=== PATIENT | female | born 1980 | race Caucasian/White ===

== ENCOUNTER → 2016-07-15 | Outpatient (CLI) | payer OTHER ==
[~2016-07-15] MED LIST: PERCOCET1 TA1 PO; ZANTAC 150 MAX150 MG PO
== END ==
LOC: LAB SRH 14:26
DX: Z01.812 Encounter for preprocedural laboratory examination (principal); N92.0 Excessive and frequent menstruation with regular cycle; N93.0 Postcoital and contact bleeding
CPT/HCPCS: 90001; 90004; 90047; 90074; 90155; 90364; 91004; 92863; 95059; 98428

== ENCOUNTER 2016-07-17 08:37 | Day surgery (SDC) | payer OTHER ==
--- NOTE | 2016-07-13 12:52 | HISTORY AND PHYSICAL ---
ADMITTED: 07/17/2016 CHIEF COMPLAINT: 1. Abnormal uterine bleeding. 2. Uterine fibroids. 3. Pelvic pain, female. CHIEF COMPLAINT: The patient has a prolonged history of abnormal uterine bleeding. She has been seen primarily by Dr. Boyer until today. She has an ultrasound showing a 12 weeks' size uterus with a 2.5 cm uterus and heavy bleeding history with multiple treatments in office visits. The patient has multiple options given to her and she has a history of abnormal Pap smears so she elects to have a laparoscopic-assisted vaginal hysterectomy with bilateral salpingectomy removing the tubes and she chooses to have her ovaries remain. This option was given by Dr. Boyer and myself. The patient understands and accepts the risks and benefits. Informed consent was given to her by Dr. Boyer and myself. Informed consent was signed by the patient today with me. MEDICAL/SURGICAL HISTORY: Menstrual history routine. No outstanding. Contraception history not outstanding. OB history: Vaginal deliveries in 2003 and 2006, 8 pounds 8 ounces. No significant stress urinary incontinence without heavy Valsalva. Surgical history: None. Medical: None. MEDICATIONS: 1. None. ALLERGIES: 1. NONE. SOCIAL HISTORY: Tobacco, alcohol and drugs none. FAMILY HISTORY: Mother, father, siblings alive and well. REVIEW OF SYSTEMS: The patient is alert and oriented x3. Genitourinary is per reason for surgery. Cardiovascular: No shortness of breath or chest pain. Gastrointestinal: Normal. PHYSICAL EXAMINATION: VITAL SIGNS: 198 pounds, height 5 feet 4, 64 inches. Blood pressure 128/66, pulse and temperature normal. SKIN/HAIR/INTEGUMENT: Normal. HEENT: Grossly intact. BREASTS: Exam not done. LUNGS: Clear. HEART: Regular rate and rhythm. ABDOMEN: Overweight. EXTREMITIES: Normal. No clubbing, cyanosis, erythema, edema. PELVIC: Exam done by Dr. Boyer with sampling. RECTAL: Exam not done. LAB/IMAGING: Laboratory pending. Pathology from Pap smear and colposcopy recently is negative. IMPRESSION: 1. The patient with abnormal uterine bleeding 2. Pelvic pain 3. Uterine fibroids for surgery. PLAN: Laparoscopically-assisted vaginal hysterectomy, bilateral salpingectomy, no oophorectomy. Risks and benefits were described to the patient. Informed consent given. Risks, benefits, complications, alternatives of blood loss, need for transfusion , infection, damage to pelvic and nonpelvic organs requiring additional surgery, possibility of ICU stay, intubation, coma and as compared to motor vehicle accident. The patient understands and accepts.
[~2016-07-17 08:37] MED LIST changes: -PERCOCET1 TA1 PO
[2016-07-17] MEDS ORDERED: PERCOCET1 TA1 PO ×2 (13:00)
--- NOTE | 2016-07-17 13:02 | Provider's Discharge Care Plan ---
Problem, Goal, Plan Problem List 1. Post-operative pain Goals: Improve disease control Instructions: Follow up as needed
--- NOTE | 2016-07-17 13:02 | Provider's Discharge Care Plan ---
Problem, Goal, Plan Problem List 1. Post-operative pain Goals: Improve disease control Instructions: Follow up as needed
--- NOTE | 2016-07-17 14:08 | OPERATIVE REPORT ---
DATE OF SURGERY: 07/17/2016 SURGEON: Greg Darby MD [employer] DR[employer]: Dr. Boyer PREOPERATIVE DIAGNOSES: 1. Pelvic pain 2. Cervical intraepithelial neoplasia 3. Cervical cyst POSTOPERATIVE DIAGNOSES: 1. Pelvic pain 2. Cervical intraepithelial neoplasia 3. Cervical cyst PROCEDURE PERFORMED: 1. Laparoscopic-assisted vaginal hysterectomy, three 5's, one 11. ANESTHESIA: General endotracheal. Ruy Ham MD. 25 mL subcutaneous for 4 puncture sites. COMPLICATIONS: None. CONDITION: Good. ESTIMATED BLOOD LOSS: Minimal. Less than 50 mL. FLUIDS: 800. No blood. DRAINS: 1100. IMPLANTS/GRAFTS: No grafts, no implants. PATHOLOGY SPECIMEN: Total vaginal hysterectomy with bilateral salpingectomy; no ovaries taken. SURGICAL FINDINGS: Eight pictures taken. Findings: See pictures. Otherwise normal anatomy. SURGICAL TECHNIQUE: The patient was prepped and draped in the usual fashion and time-out was taken. The patient had 2 grams of Ancef. Four puncture sites were placed, after the Veress needle was inserted, without difficulty. An 11 in subumbilical and three 5s were placed in the normal areas without difficulty. The uterus was removed in the usual fashion. The broad ligament and salpinx were lifted, and the Thunderbeat was used to separate the ovaries from the salpinx, down in the uterine, through transverse cervical ligaments, and then dissected into the vagina on Dr. Boyer's side. Then, the gas was allowed to escape. The attention was turned to the vagina. The CO2 initiated and a double-tooth tenaculum was used to pull down on the cervix. Bovie was used to incise some of the cervical reflection, since the vagina had been entered. The PK was used to dissect the rest of uterus without difficulty, and deliver it out of the uterus with the tubes intact. At this point, the Presho was used, along with an 0 poly to run from angle to angle and reapproximate the uterosacral ligaments in the midline, with good hemostasis. The gas was then placed back in the abdomen. Inspection was performed. Irrigation was performed. Hemostasis was meticulous. Instruments from the 3 ports were removed, and then the 11 mm was removed. The [id number] was placed in the subumbilical. Tape was placed on all 4 puncture sites at that point, no other sutures were used. Sponge, needle, tape and instrument count was correct x2. The patient tolerated the procedure well and went to the recovery room.
[2016-07-17 14:35] VITALS: BP 105/61
[2016-07-17 14:50] VITALS: BP 109/51
[2016-07-17 15:06] VITALS: BP 109/51
== END 2016-07-17 16:30 | disposition home or self-care (01) ==
LOC: OR SRH 08:37 → SCU SRH 08:38 → OR SRH 10:00 → ACUTE2 SRH 14:35 → OR SRH 16:30
PROVIDERS: Obstetrics & Gynecology
PROC: 0UT7FZZ Resection of Bilateral Fallopian Tubes, Via Natural or Artificial Opening With Percutaneous Endoscopic Assistance (ICD-10-PCS; principal; 2016-07-17 10:00)
PROC: 0UTC7ZZ Resection of Cervix, Via Natural or Artificial Opening (ICD-10-PCS; principal; 2016-07-17 10:00)
PROC: 0UT9FZZ Resection of Uterus, Via Natural or Artificial Opening With Percutaneous Endoscopic Assistance (ICD-10-PCS; principal; 2016-07-17 10:00)
DX: R10.2 Pelvic and perineal pain (principal); N87.9 Dysplasia of cervix uteri, unspecified; N88.8 Other specified noninflammatory disorders of cervix uteri; N93.9 Abnormal uterine and vaginal bleeding, unspecified